=== PATIENT | female | born 1955 | race Hispanic/Latino ===

== ENCOUNTER → 2018-11-06 | Outpatient (CLI) | payer MEDICAID | END | disposition home or self-care (01) | LOC: RAH 11:11 | PROVIDERS: ATTEND Family Medicine | DX: Z12.31 Encounter for screening mammogram for malignant neoplasm of breast (principal) | CPT/HCPCS: 77067 ==

== ENCOUNTER 2022-11-19 05:33 | Day surgery (SDC) | payer MEDICARE ==
[2022-11-14 11:47] LABS: BASOPHILS % (AUTO) 0.5 % (0.0-5.0); EOSINOPHILS % (AUTO) 4.9 % (0.0-8.0); HEMATOCRIT 36.2 % (36-48); LYMPHOCYTES % (AUTO) 29.4 % (21.0-51.0); MEAN CORPUSCULAR HEMOGLOBIN 24.8 pg (27.0-33.0); MEAN CORPUSCULAR HGB CONC 30.4 g/dL (32.0-36.0); MEAN CORPUSCULAR VOLUME 81.7 fL (79-99); MONOCYTES % (AUTO) 6.8 % (3.0-13.0); NEUTROPHILS % (AUTO) 57.9 % (40.0-77.0); PLATELET COUNT (AUTO) 142 K/uL (130-400); RED BLOOD CELL COUNT(AUTO) 4.43 MIL/uL (4.00-5.50); RED CELL DISTRIBUTION WIDTH 16.5 % (11.0-15.5); WHITE BLOOD COUNT (AUTO) 4.1 K/uL (4.8-10.8)
[2022-11-14 11:54] LABS: CREATININE 1.3 mg/dL (0.5-1.5); POTASSIUM 4.5 mmol/L (3.5-5.1)
[2022-11-14 12:06] LABS: APPEARANCE,URINE CLEAR (CLEAR); BILIRUBIN,URINE NEGATIVE (NEGATIVE); COLOR,URINE COLORLESS (YELLOW); GLUCOSE, URINE (UA) >=1000 mg/dL (NEGATIVE); KETONES,URINE NEGATIVE (NEGATIVE); LEUKOCYTE ESTERASE ,URINE NEGATIVE Leu/uL (NEGATIVE); NITRATE,URINE NEGATIVE (NEGATIVE); OCCULT BLOOD,URINE NEGATIVE (NEGATIVE); PROTEIN,URINE NEGATIVE (NEGATIVE); UROBILINOGEN,URINE 0.2 mg/dL (0.2-1.0)
[2022-11-14 12:12] LABS: RBC,URINE 0-1 /HPF (0-1); SQUAMOUS EPITHELIAL CELL,UR RARE /HPF (0-2)
[2022-11-18 09:02] VITALS: BP 203/68
[2022-11-19] VITALS (17 sets, daily range): BP systolic 117–156; BP diastolic 44–73
[~2022-11-19] VITALS: Ht 149.9 cm; Wt 80.8 kg
[~2022-11-19 05:33] MED LIST: AEC81 PO; ARIP5TAB56 PO; ASCO500C18 PO; ATOR40TA71 PO; BETA1TAB18 PO; EMPA25TA PO; FENO134C21 PO; GLIM4TAB36 PO; INSLAN SQ; INSU100I3 SQ; LISI10TA24 PO; LURA60TA PO; MEMA10TA55 PO; PIOG30TA70 PO; SEMA1PEN3 SQ; VITAMIN D3 PO; ZINC220T4 PO; ZOLP5TAB8 PO
[2022-11-19] MEDS ORDERED: 0.9%NACL 1000ML 1,000 ML IV ONE (05:56)
[2022-11-19] MEDS ORDERED: FAMOTIDINE 20MG VIAL IV ONE (07:07)
[2022-11-19] MEDS ORDERED: SUCCINYLCHOLINE CHLORIDE 20 MG/ML 10 ML VIAL ONE (07:12)
[2022-11-19] MEDS ORDERED: LIDOCAINE PF 100MG/5ML (2%) SYRINGE 5ML ONE (07:12)
[2022-11-19] MEDS ORDERED: GLYCOPYRROLATE 1 MG/5 ML SYRINGE ONE (07:12)
[2022-11-19] MEDS ORDERED: FENTANYL CITRATE PF 50 MCG/1 ML 2ML VIAL ONE (07:13)
[2022-11-19] MEDS ORDERED: ROCURONIUM 10MG/1ML SYR 10 MG/ML ML ONE (07:13)
[2022-11-19] MEDS ORDERED: PROPOFOL 10 MG/ML 20ML VIAL IV ONE ×2 (07:13→08:03)
[2022-11-19] MEDS ORDERED: NEOSTIGMINE 5MG/5ML SYR IV ONE (08:15)
[2022-11-19] MEDS ORDERED: SUGAMMADEX SODIUM 200 MG/2 ML VIAL IV ONE (08:22)
== END 2022-11-19 09:55 | disposition home or self-care (01) ==
LOC: DAH 05:33
PROVIDERS: ATTEND Obstetrics & Gynecology
DX: N95.0 Postmenopausal bleeding (principal); Z20.822 Contact with and (suspected) exposure to COVID-19; N84.0 Polyp of corpus uteri; N95.8 Other specified menopausal and perimenopausal disorders; I45.10 Unspecified right bundle-branch block; K21.9 Gastro-esophageal reflux disease without esophagitis; E78.00 Pure hypercholesterolemia, unspecified; F20.9 Schizophrenia, unspecified; M81.0 Age-related osteoporosis without current pathological fracture; E10.9 Type 1 diabetes mellitus without complications; Z79.01 Long term (current) use of anticoagulants; Z79.899 Other long term (current) drug therapy; Z86.73 Personal history of transient ischemic attack (TIA), and cerebral infarction without residual deficits; Z90.49 Acquired absence of other specified parts of digestive tract; Z98.890 Other specified postprocedural states; Z82.49 Family history of ischemic heart disease and other diseases of the circulatory system; Z80.9 Family history of malignant neoplasm, unspecified
CPT/HCPCS: 80048; 85025; 86850 ×2; 86900 ×2; 86901 ×2; 87426; 81001; 36415 ×2; 93005; 58558; 82948 ×2; 88305; A4663; J7030 ×2; A4351; A4355; J3490 ×2; J3010; J2710; J0330; J2001; J2704 ×2; A4215; A4223; A4222; A4221

== ENCOUNTER 2022-12-28 15:04 | Emergency (ER) | payer MEDICARE ==
[2022-12-28 16:28] LABS: BASOPHILS % (AUTO) 0.5 % (0.0-5.0); EOSINOPHILS % (AUTO) 2.1 % (0.0-8.0); HEMATOCRIT 39.8 % (36-48); LYMPHOCYTES % (AUTO) 20.9 % (21.0-51.0); MEAN CORPUSCULAR HEMOGLOBIN 26.5 pg (27.0-33.0); MEAN CORPUSCULAR HGB CONC 30.7 g/dL (32.0-36.0); MEAN CORPUSCULAR VOLUME 86.5 fL (79-99); PLATELET COUNT (AUTO) 127 K/uL (130-400); RED CELL DISTRIBUTION WIDTH 19.7 % (11.0-15.5); WHITE BLOOD COUNT (AUTO) 4.4 K/uL (4.8-10.8)
[2022-12-28 16:39] LABS: CREATININE 1.2 mg/dL (0.5-1.5); POTASSIUM 4.5 mmol/L (3.5-5.1)
[2022-12-28 16:43] LABS: ALBUMIN 3.4 g/dL (3.5-5.0); TOTAL PROTEIN, SERUM 7.1 g/dL (6.0-8.3)
[2022-12-28 17:38] LABS: APPEARANCE,URINE CLEAR (CLEAR); BILIRUBIN,URINE NEGATIVE (NEGATIVE); COLOR,URINE COLORLESS (YELLOW); GLUCOSE, URINE (UA) >=1000 mg/dL (NEGATIVE); KETONES,URINE NEGATIVE (NEGATIVE); LEUKOCYTE ESTERASE ,URINE 25 Leu/uL (NEGATIVE); NITRATE,URINE NEGATIVE (NEGATIVE); PH,URINE 5.5 (5.0-8.0); PROTEIN,URINE NEGATIVE (NEGATIVE); UROBILINOGEN,URINE 0.2 mg/dL (0.2-1.0)
[2022-12-28 17:44] LABS: BACTERIA,URINE FEW /HPF (None Seen); RBC,URINE 0-1 /HPF (0-1); SQUAMOUS EPITHELIAL CELL,UR FEW /HPF (0-2); YEAST,URINE BUDDING FEW /HPF (None Seen)
[2022-12-28 18:50] VITALS: BP 143/72
[2022-12-28] MEDS ORDERED: MACR100 PO (19:20)
[2022-12-28] MEDS ORDERED: CEFTRIAXONE 1G VIAL ONE (19:20)
[2022-12-28] MEDS ORDERED: CEFTRIAXONE 1G VIAL IVP ONE (19:30)
== END 2022-12-28 19:48 | disposition home or self-care (01) ==
LOC: EDH 15:04
DX: E11.649 Type 2 diabetes mellitus with hypoglycemia without coma (principal); N39.0 Urinary tract infection, site not specified; I10 Essential (primary) hypertension; F03.90 Unspecified dementia, unspecified severity, without behavioral disturbance, psychotic disturbance, mood disturbance, and anxiety; Z79.899 Other long term (current) drug therapy; Z79.82 Long term (current) use of aspirin; Z79.84 Long term (current) use of oral hypoglycemic drugs
CPT/HCPCS: 99284; 96374; 84484; 80053; 85025; 82948 ×2; 81001; 36415; J0696

== ENCOUNTER → 2023-01-29 | Outpatient (CLI) | payer MEDICARE ==
[~2023-01-29] MED LIST changes: +MACR100 PO
== END | disposition home or self-care (01) ==
LOC: SHCH 12:50
PROVIDERS: ATTEND Internal Medicine Cardiovascular Disease
DX: R94.31 Abnormal electrocardiogram [ECG] [EKG] (principal)
CPT/HCPCS: 93306

== ENCOUNTER → 2023-01-31 | Outpatient (CLI) | payer MEDICARE ==
[~2023-01-31] MED LIST changes: +REGADENOSON 0.4 MG/5 ML PF SYG IVP ONE
== END | disposition home or self-care (01) ==
LOC: SHCH 07:55
PROVIDERS: ATTEND Internal Medicine Cardiovascular Disease
DX: I45.19 Other right bundle-branch block (principal); R94.31 Abnormal electrocardiogram [ECG] [EKG]
CPT/HCPCS: 78452; 96374; 93017; J2785; A9500 ×2

== ENCOUNTER 2023-04-02 22:01 | Observation (INO) | payer MEDICARE ==
[~2023-04-02] VITALS: Ht 149.9 cm; Wt 83.5 kg
[~2023-04-02 22:01] MED LIST changes: -REGADENOSON 0.4 MG/5 ML PF SYG IVP ONE
[2023-04-02 22:44] LABS: BASOPHILS % (AUTO) 0.3 % (0.0-5.0); EOSINOPHILS % (AUTO) 0.7 % (0.0-8.0); HEMATOCRIT 39.3 % (36-48); LYMPHOCYTES % (AUTO) 11.8 % (21.0-51.0); MEAN CORPUSCULAR HEMOGLOBIN 29.4 pg (27.0-33.0); MEAN CORPUSCULAR HGB CONC 32.1 g/dL (32.0-36.0); MEAN CORPUSCULAR VOLUME 91.8 fL (79-99); MONOCYTES % (AUTO) 7.2 % (3.0-13.0); NEUTROPHILS % (AUTO) 79.6 % (40.0-77.0); PLATELET COUNT (AUTO) 110 K/uL (130-400); RED BLOOD CELL COUNT(AUTO) 4.28 MIL/uL (4.00-5.50); RED CELL DISTRIBUTION WIDTH 14.6 % (11.0-15.5); WHITE BLOOD COUNT (AUTO) 6.9 K/uL (4.8-10.8)
[2023-04-02 22:56] LABS: CREATININE 1.3 mg/dL (0.5-1.5); POTASSIUM 3.7 mmol/L (3.5-5.1)
[2023-04-02 23:05] LABS: ALBUMIN 3.3 g/dL (3.5-5.0); TOTAL PROTEIN, SERUM 6.7 g/dL (6.0-8.3)
[2023-04-02 23:22] LABS: APPEARANCE,URINE CLEAR (CLEAR); BILIRUBIN,URINE NEGATIVE (NEGATIVE); COLOR,URINE LIGHT-YELLOW (YELLOW); GLUCOSE, URINE (UA) >=1000 mg/dL (NEGATIVE); KETONES,URINE NEGATIVE (NEGATIVE); LEUKOCYTE ESTERASE ,URINE 250 Leu/uL (NEGATIVE); NITRATE,URINE NEGATIVE (NEGATIVE); OCCULT BLOOD,URINE NEGATIVE (NEGATIVE); PROTEIN,URINE NEGATIVE (NEGATIVE); UROBILINOGEN,URINE 0.2 mg/dL (0.2-1.0)
[2023-04-02 23:27] LABS: BACTERIA,URINE RARE /HPF (None Seen); MUCUS,URINE RARE LPF (None Seen); SQUAMOUS EPITHELIAL CELL,UR FEW /HPF (0-2); WBC,URINE 26-50 /HPF (0-1)
[2023-04-02] MEDS: DEXTROSE 10%-WATER 1,000 ML IV SCH (23:32)
[2023-04-03] MEDS ORDERED: CEFTRIAXONE 2GM VIAL IVPB ONE (00:30)
[2023-04-03] MEDS ORDERED: ACETAMINOPHEN 325 MG TAB PO PRN ×2 (02:00)
[2023-04-03] MEDS ORDERED: GLUCAGON 1MG KIT 1 MG ML IM PRN (02:00)
[2023-04-03] MEDS ORDERED: LACTULOSE 20 GM/30 ML UDCUP PO PRN (02:00)
[2023-04-03] MEDS ORDERED: ONDANSETRON 4MG INJ IV PRN (02:00)
[2023-04-03] MEDS ORDERED: GUAIFENESIN-DM 200/20 MG 10 ML PO PRN (02:00)
[2023-04-03] MEDS ORDERED: DEXTROSE 50%-WATER 50 ML DISP.SYRIN IV PRN (02:00)
[2023-04-03] MEDS ORDERED: NITROGLYCERIN 0.4 MG SL TAB SL PRN (02:00)
[2023-04-03] MEDS ORDERED: HYDRALAZINE 20MG/ML VIAL IV PRN (02:00)
[2023-04-03] MEDS: CEFTRIAXONE 1G VIAL IVPB SCH (02:00)
[2023-04-03] MEDS: 0.9%NACL 1000ML 1,000 ML IV SCH ×3 (02:03→18:54)
[2023-04-03] MEDS: FAMOTIDINE 20MG TAB PO SCH ×2 (09:05→20:35)
[2023-04-03] MEDS: ENOXAPARIN SODIUM 40 MG/0.4 ML SYRINGE SQ SCH (09:05)
[2023-04-03 10:37] VITALS: BP 133/85
[2023-04-03] MEDS: MEMANTINE HCL 5 MG TABLET PO SCH ×2 (10:43→20:35)
[2023-04-03 11:53] VITALS: BP 123/61
[2023-04-03] MEDS ORDERED: SEMA2PEN SQ (12:03)
[2023-04-03] MEDS ORDERED: MECO10005 PO (12:03)
[2023-04-03] MEDS ORDERED: RIVA1PAT12 TD (12:03)
[2023-04-03] MEDS ORDERED: CHOL200012 PO (12:03)
[2023-04-03] MEDS ORDERED: MV-M1CAP24 PO (12:03)
[2023-04-03] MEDS ORDERED: FOLI0.8T43 PO (12:03)
[2023-04-03] MEDS ORDERED: FERR-72 PO (12:03)
[2023-04-03 13:47] LABS: THYROID STIMULATING HORMONE 1.03 uIU/mL (0.36-3.74)
[2023-04-03] MEDS: DEXTROSE 10%-WATER 1,000 ML IV SCH (14:48)
[2023-04-03 16:23] VITALS: BP 152/72
[2023-04-03 19:29] VITALS: BP 148/83
[2023-04-03] MEDS ORDERED: ATORVASTATIN 40 MG TABLET PO SCH (21:00)
[2023-04-03] MEDS ORDERED: ZOLPIDEM TARTRATE 5 MG TAB PO SCH (21:00)
[2023-04-03] MEDS ORDERED: FENOFIBRATE MICRONIZED 134 MG PO SCH (21:00)
[2023-04-03 22:54] VITALS: BP 124/55
[2023-04-04] MEDS: CEFTRIAXONE 1G VIAL IVPB SCH (01:41)
[2023-04-04 02:19] VITALS: BP 114/66
[2023-04-04] MEDS: 0.9%NACL 1000ML 1,000 ML IV SCH (03:40)
[2023-04-04 04:38] LABS: BASOPHILS % (AUTO) 0.7 % (0.0-5.0); EOSINOPHILS % (AUTO) 2.5 % (0.0-8.0); LYMPHOCYTES % (AUTO) 23.5 % (21.0-51.0); MEAN CORPUSCULAR HEMOGLOBIN 29.5 pg (27.0-33.0); MEAN CORPUSCULAR HGB CONC 31.8 g/dL (32.0-36.0); MEAN CORPUSCULAR VOLUME 92.9 fL (79-99); MONOCYTES % (AUTO) 7.8 % (3.0-13.0); NEUTROPHILS % (AUTO) 65.3 % (40.0-77.0); PLATELET COUNT (AUTO) 103 K/uL (130-400); RED CELL DISTRIBUTION WIDTH 14.6 % (11.0-15.5); WHITE BLOOD COUNT (AUTO) 5.5 K/uL (4.8-10.8)
[2023-04-04 04:49] LABS: CREATININE 1.1 mg/dL (0.5-1.5); POTASSIUM 3.8 mmol/L (3.5-5.1)
[2023-04-04 08:00] VITALS: BP 146/74
[2023-04-04] MEDS ORDERED: LISINOPRIL 10 MG TABLET PO SCH (09:00)
[2023-04-04] MEDS ORDERED: ARIPIPRAZOLE 5 MG TABLET PO SCH (09:00)
[2023-04-04] MEDS ORDERED: ASPIRIN 81 MG EC TAB PO SCH (09:00)
[2023-04-04] MEDS: MEMANTINE HCL 5 MG TABLET PO SCH (09:08)
[2023-04-04] MEDS: FAMOTIDINE 20MG TAB PO SCH (09:09)
[2023-04-04] MEDS: ENOXAPARIN SODIUM 40 MG/0.4 ML SYRINGE SQ SCH (09:11)
[2023-04-04 11:00] VITALS: BP 128/76
[2023-04-04] MEDS ORDERED: AMOX-426 PO (15:09)
[2023-04-04 16:20] VITALS: BP 131/72
== END 2023-04-04 17:10 | disposition home or self-care (01) ==
LOC: EDH 22:01 → EDHIP 04-03 02:00 → WSH 04-03 10:25 → UNDODISOB 04-04 14:00
PROVIDERS: ADMIT Internal Medicine Critical Care Medicine; ATTEND Internal Medicine Critical Care Medicine
DX: A41.9 Sepsis, unspecified organism (principal); E11.649 Type 2 diabetes mellitus with hypoglycemia without coma; N30.00 Acute cystitis without hematuria; F03.90 Unspecified dementia, unspecified severity, without behavioral disturbance, psychotic disturbance, mood disturbance, and anxiety; F20.9 Schizophrenia, unspecified; I10 Essential (primary) hypertension; M81.0 Age-related osteoporosis without current pathological fracture; Z79.4 Long term (current) use of insulin; Z90.49 Acquired absence of other specified parts of digestive tract; Z79.899 Other long term (current) drug therapy; Z98.890 Other specified postprocedural states; Z79.82 Long term (current) use of aspirin
CPT/HCPCS: 96361 ×3; 99284; 80053; 83690; 85025 ×2; 87088; 82948 ×12; 81001; 36415 ×3; 96372 ×2; 96365; 96366; 84443; 84439; 83605; 82533; 96376; 80048; G0378 ×39; J7030; J0696 ×2; J1650 ×2; J3490